=== PATIENT | female | born 1970 ===

== ENCOUNTER 2016-07-12 16:35 | Emergency (ER) | payer BC ==
--- NOTE | 2016-07-12 17:24 | UC ---
Abdominal Pain Female HPI - HPI Summary HPI Summary: ONSET OF UPPER ABDOMINAL PAIN LAST NIGHT. FEVER 102. NO N/V/D. HAD A BM THIS MORNING WITH NO IMPROVEMENT IN SX. KIDS AT HOME HAVE URI SX. DENIES ANY URINARY SX. 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 Negative: Diaphoresis, Chest Pain, Dizzy, Back Pain, Constipation, Blood in Stool, Urinary Symptoms, Nausea, Vomiting, Diarrhea Allergies/Adverse Reactions: Allergies Allergy/AdvReac Type Severity Reaction Status Date / Time No Known Allergies Allergy Verified 07/12/16 16:53 Home Medications: Home Medications NK [No Home Medications Reported] 07/12/16 [History Confirmed 07/12/16] PMH/Surg Hx/FS Hx/Imm Hx Previously Healthy: Yes - Surgical History Surgical History: None - Family History Known Family History: Negative: Hypertension - Social History Alcohol Use: Rare Substance Use Type: None Smoking Status (MU): Never Smoked Tobacco Review of Systems Constitutional: Fever Respiratory: Negative Cardiovascular: Negative Gastrointestinal: Abdominal Pain Genitourinary: Negative All Other Systems Reviewed And Are Negative: Yes Physical Exam Triage Information Reviewed: Yes Appearance: Well-Nourished, Pain Distress - MODERATE Vital Signs: Initial Vital Signs Temp 98.0 F 07/12/16 16:47 Pulse 99 07/12/16 16:47 Resp 18 07/12/16 16:47 BP 143/91 07/12/16 16:47 Pulse Ox 99 07/12/16 16:47 Vital Signs Reviewed: Yes Eyes: Positive: Conjunctiva Clear ENT: Positive: Hearing grossly normal Neck: Positive: Supple, Nontender, No Lymphadenopathy Respiratory Exam: Normal Cardiovascular: Positive: Tachycardia Abdomen Description: Positive: Soft, Other: - TTP RLQ. NO REBOUND OR RIGIDITY. POS OBTURATOR SIGN. NEG PSOAS.. Negative: Distended, Guarding Bowel Sounds: Positive: Present Musculoskeletal: Positive: No Edema Neurological: Positive: Alert Psychological: Positive: Normal Response To Family, Age Appropriate Behavior Skin: Negative: rashes Abd Pain Female Course/Dx - Course Course Of Treatment: ON EXAM PT FOUND TO BE EXQUISITELY TTP RLQ. TO [facility] [place] FURTHER EVAL. - Differential Dx/Diagnosis Differential Diagnosis: Appendicitis, Bowel Obstruction, Constipation, Ectopic , Urinary Tract Infection Provider Diagnoses: RLQ ABD PAIN - Physician Notification/Consults Discussed Patient Care With: PRECIOUS LIANG Time Discussed With Above Provider: 17:32 - TO [facility] BY PRIVATE CAR Discharge - Discharge Plan Condition: Stable Disposition: AGAINST MEDICAL ADVICE Referrals: Evette Singh MD [Primary Care Provider] -
[2016-07-12 17:55] VITALS: BP 117/72
== END 2016-07-12 17:34 | disposition left against medical advice (07) ==
LOC: UCEAST 16:35
DX: R10.31 Right lower quadrant pain (principal); R50.9 Fever, unspecified
CPT/HCPCS: 99202; G0463

== ENCOUNTER 2016-07-12 17:49 | Emergency (ER) | payer BC ==
[2016-07-12] MEDS ORDERED: Ondansetron INJ* 2 MG/ML VIAL IV ONE (18:15)
[2016-07-12] MEDS ORDERED: NS 0.9% 1000 ML* 1,000 ML IV ONE (18:15)
[2016-07-12 18:36] LABS: Urine Bilirubin Negative (Negative); Urine Glucose Negative (Negative); Urine Nitrite Negative (Negative)
[2016-07-12 18:38] LABS: ALT 6 U/L (7-52); AST 17 U/L (13-39); Albumin 4.4 g/dL (3.2-5.2); Alkaline Phosphatase 59 U/L (34-104); Amylase 37 U/L (29-103); Anion Gap 8 mmol/L (2-11); BUN/Creatinine Ratio 9.9 (8-20); Blood Urea Nitrogen 7 mg/dL (6-24); C Reactive Protein 10.95 mg/L (< 5.00); CO2 Carbon Dioxide 25 mmol/L (22-32); Calcium 9.2 mg/dL (8.6-10.3); Chloride 99 mmol/L (101-111); Creatine Kinase 39 U/L (10-223); EGFR African American 113.5 (>60); EGFR Non-African American 88.2 (>60); Globulin 3.5 g/dL (2-4); Glucose 114 mg/dL (70-100); Lipase 35 U/L (11.0-82.0); Potassium 3.4 mmol/L (3.5-5.0); Sodium 132 mmol/L (133-145); Total Protein 7.9 g/dL (6.4-8.9)
[2016-07-12 18:45] LABS: Hematocrit 44 % (35-47); Hemoglobin 14.6 g/dl (12.0-16.0); Mean Corpuscular HGB Conc 33 g/dl (31-36); Mean Corpuscular Hemoglobin 26 pg (27-31); Mean Corpuscular Volume 79 fL (80-97); Mean Platelet Volume 10 um3 (7.4-10.4); Red Blood Count 5.52 10^6/ul (4.0-5.4); Red Cell Distribution Width 14 % (10.5-15); White Blood Count 3.8 10^3/ul (3.5-10.8)
[2016-07-12] MEDS ORDERED: Iohexol 300* (CONTRAST) 10 ML SDV IV ONE (18:45)
--- NOTE | 2016-07-12 20:50 | RAD ---
INDICATION: Right lower quadrant abdominal pain. COMPARISON: There are no prior studies available for comparison. TECHNIQUE: A CT scan of the abdomen and pelvis was performed with intravenous and oral contrast following intravenous injection of 105 ml of Omnipaque 300 nonionic contrast. Contiguous axial sections were obtained from the lung bases through the symphysis pubis. Images were reconstructed in the coronal and sagittal planes. FINDINGS: There is mild dependent bilateral lower lobe subsegmental atelectasis. No pleural effusion is present. The liver and spleen are within normal limits in size without significant focal abnormality. No calcified gallstones are seen. The pancreas appears to be within normal limits in size. The kidneys and adrenal glands are normal in size. No hydronephrosis is seen. No significant focal renal abnormality is seen. The aorta is normal in caliber and demonstrates homogeneous contrast opacification. No significant enlarged retroperitoneal lymph nodes are seen. The stomach, small and large bowel appear nondistended. The appendix is within normal limits. There is no evidence for diverticulitis or colitis. There is a small periumbilical hernia containing fat. The uterus is retroverted and normal in size. There are bilateral involuting ovarian cysts measuring 2.1 x 1.2 cm on the right side and 1.6 x 1.4 cm on the left side. There is a small amount of free intraperitoneal fluid in the cul-de-sac. No free intraperitoneal air is seen. No significant focal osseous abnormality is seen. IMPRESSION: 1. NO EVIDENCE FOR APPENDICITIS. 2. SMALL BILATERAL INVOLUTING OVARIAN CYSTS.
[2016-07-12] MEDS ORDERED: Ketorolac INJ* 30 MG/ML 1 ML VIAL IV PUSH ONE (21:09)
[2016-07-12] MEDS ORDERED: oxyCODONE/Acetamin 5/325 MG* TAB PO ONE (21:29)
[2016-07-12] MEDS ORDERED: Ondansetron ODT TAB* 4 MG PO ONE (21:29)
--- NOTE | 2016-07-12 21:32 | ED ---
Dylon Mcwilliams Billy, scribed for Adam Wynn MD on 07/12/16 at 1814 . Abdominal Pain/Female - HPI Summary HPI Summary: Patient is a 46 year-old female coming to [facility] presenting with constant abdominal pain for the last 24 hours. Pain severity 8/10. She states that the pain, at rest, is primarily located in the umbilical region, although she states she had RLQ tenderness with palpation when she was seen at [facility] today. Denies any fevers, N/V/D. - History of Current Complaint Chief Complaint: EDAbdPain Stated Complaint: ABD PAIN COMMING FROM [facility] Time Seen by Provider: 07/12/16 18:10 Hx Obtained From: Patient Hx Last Menstrual Period: 3 wks ago Onset/Duration: Gradual Onset, Lasting Hours, Still Present Timing: Constant Severity Initially: Moderate Severity Currently: Moderate Pain Intensity: 8 Pain Scale Used: 0-10 Numeric Location: Discrete At: RLQ, Umbilical Aggravating Factor(s): Other: - palpation Alleviating Factor(s): Nothing Associated Signs and Symptoms: Negative: Fever, Nausea, Vomiting, Diarrhea Allergies/Adverse Reactions: Allergies Allergy/AdvReac Type Severity Reaction Status Date / Time No Known Allergies Allergy Verified 07/12/16 17:51 PMH/Surg Hx/FS Hx/Imm Hx Endocrine/Hematology History: Denies: Hx Diabetes Cardiovascular History: Denies: Hx Hypertension Infectious Disease History: No Infectious Disease History: Denies: Traveled Outside the [place] in Last 30 Days - Family History Known Family History: Negative: Cardiac Disease, Hypertension, Diabetes - Social History Alcohol Use: Rare Substance Use Type: Reports: None Smoking Status (MU): Never Smoked Tobacco Review of Systems Negative: Fever Positive: Abdominal Pain. Negative: Vomiting, Diarrhea, Nausea All Other Systems Reviewed And Are Negative: Yes Physical Exam - Summary Physical Exam Summary: VITAL SIGNS: Reviewed. GENERAL: Patient is a well developed and nourished female who is lying comfortable in the stretcher. Patient is not in any acute respiratory distress. HEAD AND FACE: Normocephalic and atraumatic. EYES: PERRLA, EOMI x 2, No injected conjunctiva. EARS: Hearing grossly intact. Ear canals and tympanic membranes are WNL. MOUTH: Oropharynx within normal limits. NECK: Supple, trachea is midline, no adenopathy, no JVD. CHEST: Symmetric, no tenderness at palpation LUNGS: Clear to auscultation bilaterally. No wheezing or crackles. CVS: RRR,, S1 and S2 present, no murmurs or gallops appreciated. ABDOMEN: Soft, positive RLQ tenderness. No signs of distention. Positive bowel sounds. No rebound no guarding, and no masses palpated. No abdominal bruit or pulsations. EXTREMITIES: FROM in all major joints, no edema, no cyanosis or clubbing. NEURO: Alert and oriented x 3. No acute neurological deficits. Speech is normal. SKIN: Dry and warm Triage Information Reviewed: Yes Vital Signs On Initial Exam: Initial Vitals Temp Pulse Resp BP Pulse Ox 97.1 F 93 18 129/97 100 07/12/16 17:51 07/12/16 17:51 07/12/16 17:51 07/12/16 17:51 07/12/16 17:51 Vital Signs Reviewed: Yes Diagnostics - Vital Signs Vital Signs Temp Pulse Resp BP Pulse Ox 07/12/16 17:51 97.1 F 93 18 129/97 100 - Laboratory Lab Results: Lab Results 07/12/16 07/12/16 07/12/16 Range/Units 18:00 18:10 18:10 WBC 3.8 (3.5-10.8) 10^3/ul RBC 5.52 H (4.0-5.4) 10^6/ul Hgb 14.6 (12.0-16.0) g/dl Hct 44 (35-47) % MCV 79 L (80-97) fL MCH 26 L (27-31) pg MCHC 33 (31-36) g/dl RDW 14 (10.5-15) % Plt Count 159 (150-450) 10^3/ul MPV 10 (7.4-10.4) um3 Neut % (Auto) 48.1 (38-83) % Lymph % (Auto) 38.1 (25-47) % Osborne % (Auto) 13.1 H (1-9) % Eos % (Auto) 0.1 (0-6) % Baso % (Auto) 0.6 (0-2) % Absolute Neuts (auto) 1.8 (1.5-7.7) 10^3/ul Absolute Lymphs (auto) 1.5 (1.0-4.8) 10^3/ul Absolute Monos (auto) 0.5 (0-0.8) 10^3/ul Absolute Eos (auto) 0 (0-0.6) 10^3/ul Absolute Basos (auto) 0 (0-0.2) 10^3/ul Absolute Nucleated RBC 0.01 10^3/ul Nucleated RBC % 0.2 Sodium 132 L (133-145) mmol/L Potassium 3.4 L (3.5-5.0) mmol/L Chloride 99 L (101-111) mmol/L Carbon Dioxide 25 (22-32) mmol/L Anion Gap 8 (2-11) mmol/L BUN 7 (6-24) mg/dL Creatinine 0.71 (0.51-0.95) mg/dL Est GFR ( Amer) 113.5 (>60) Est GFR (Non-Af Amer) 88.2 (>60) BUN/Creatinine Ratio 9.9 (8-20) Glucose 114 H (70-100) mg/dL Calcium 9.2 (8.6-10.3) mg/dL Total Bilirubin 0.30 (0.2-1.0) mg/dL AST 17 (13-39) U/L ALT 6 L (7-52) U/L Alkaline Phosphatase 59 (34-104) U/L Total Creatine Kinase 39 (10-223) U/L C-Reactive Protein 10.95 H (< 5.00) mg/L B-Natriuretic Peptide ( - 100) pg/mL Total Protein 7.9 (6.4-8.9) g/dL Albumin 4.4 (3.2-5.2) g/dL Globulin 3.5 (2-4) g/dL Albumin/Globulin Ratio 1.3 (1-3) Amylase 37 (29-103) U/L Lipase 35 (11.0-82.0) U/L Beta HCG, Quant < 0.60 mIU/mL Urine Color Yellow Urine Appearance Clear Urine pH 5.0 (5-9) Ur Specific [place] 1.015 (1.010-1.030) Urine Protein Negative (Negative) Urine Ketones Negative (Negative) Urine Blood Negative (Negative) Urine Nitrate Negative (Negative) Urine Bilirubin Negative (Negative) Urine Urobilinogen Negative (Negative) Ur Leukocyte Esterase Negative (Negative) Urine Glucose Negative (Negative) Urine Ascorbic Acid * H (Negative) 07/12/16 Range/Units 18:10 WBC (3.5-10.8) 10^3/ul RBC (4.0-5.4) 10^6/ul Hgb (12.0-16.0) g/dl Hct (35-47) % MCV (80-97) fL MCH (27-31) pg MCHC (31-36) g/dl RDW (10.5-15) % Plt Count (150-450) 10^3/ul MPV (7.4-10.4) um3 Neut % (Auto) (38-83) % Lymph % (Auto) (25-47) % Osborne % (Auto) (1-9) % Eos % (Auto) (0-6) % Baso % (Auto) (0-2) % Absolute Neuts (auto) (1.5-7.7) 10^3/ul Absolute Lymphs (auto) (1.0-4.8) 10^3/ul Absolute Monos (auto) (0-0.8) 10^3/ul Absolute Eos (auto) (0-0.6) 10^3/ul Absolute Basos (auto) (0-0.2) 10^3/ul Absolute Nucleated RBC 10^3/ul Nucleated RBC % Sodium (133-145) mmol/L Potassium (3.5-5.0) mmol/L Chloride (101-111) mmol/L Carbon Dioxide (22-32) mmol/L Anion Gap (2-11) mmol/L BUN (6-24) mg/dL Creatinine (0.51-0.95) mg/dL Est GFR ( Amer) (>60) Est GFR (Non-Af Amer) (>60) BUN/Creatinine Ratio (8-20) Glucose (70-100) mg/dL Calcium (8.6-10.3) mg/dL Total Bilirubin (0.2-1.0) mg/dL AST (13-39) U/L ALT (7-52) U/L Alkaline Phosphatase (34-104) U/L Total Creatine Kinase (10-223) U/L C-Reactive Protein (< 5.00) mg/L B-Natriuretic Peptide 4 ( - 100) pg/mL Total Protein (6.4-8.9) g/dL Albumin (3.2-5.2) g/dL Globulin (2-4) g/dL Albumin/Globulin Ratio (1-3) Amylase (29-103) U/L Lipase (11.0-82.0) U/L Beta HCG, Quant mIU/mL Urine Color Urine Appearance Urine pH (5-9) Ur Specific [place] (1.010-1.030) Urine Protein (Negative) Urine Ketones (Negative) Urine Blood (Negative) Urine Nitrate (Negative) Urine Bilirubin (Negative) Urine Urobilinogen (Negative) Ur Leukocyte Esterase (Negative) Urine Glucose (Negative) Urine Ascorbic Acid (Negative) Result Diagrams: 07/12/16 18:10 07/12/16 18:10 Lab Statement: Any lab studies that have been ordered have been reviewed, and results considered in the medical decision making process. - CT abd/pel w CT Interpretation Completed By: Radiologist - 1. NO EVIDENCE FOR APPENDICITIS. 2. SMALL BILATERAL INVOLUTING OVARIAN CYSTS. Abdominal Pain Fem Course/Dx - Course Course Of Treatment: Patient is a 46 year-old female coming to [facility] presenting with constant abdominal pain for the last 24 hours. Pain severity 8/10. She states that the pain, at rest, is primarily located in the umbilical region, although she states she had RLQ tenderness with palpation when she was [facility] [place] [facility] [place]. Denies any fevers, N/V/D. Bloodwork is found to be WNL except for sodium of 132 and potassium 3.4. Glucose is 114 and CRP is 10.9. UA is negative. CT abd/pel shows no evidence for appendicitis and small bilateral ovarian cysts. In the ED course, pt was given IV fluids and Toradol for pain with improvement. Patient declined pelvic exam and pelvic ultrasounds. Therefore pt will be discharged to follow up with PCP. A&Ox3, hemodynamically stable. I discussed all the findings and test results with the patient. Patient was instructed to return to the emergency room immediately if any of the symptoms return or worsens. They were explained the possibility of an early abdominal pathology which was not detected at this time despite the physical exam and testing. They understand and agree. Abdominal exam before discharge: Soft, NT. No signs of distention. BS present. No rebound no guarding , and no masses palpated. Patient is alert and oriented and hemodynamically stable. Patient is to follow up with primary care physician in the next 2 to 3 days. Patient agree and understands. - Diagnoses Differential Diagnosis: Positive: Appendicitis, Bowel Obstruction, Constipation , Renal Colic Provider Diagnoses: Abdominal pain Discharge - Discharge Plan Condition: Stable Disposition: HOME Patient Education Materials: Abdominal Pain (ED) Referrals: Evette Singh MD [Primary Care Provider] - The documentation as recorded by the Dylon cordova Billy accurately reflects the service I personally performed and the decisions made by Kingsley issa Walter, MD.
[2016-07-12 22:05] VITALS: BP 97/66
== END 2016-07-12 22:03 | disposition home or self-care (01) ==
LOC: ED 17:49
DX: R10.31 Right lower quadrant pain (principal)
CPT/HCPCS: 36415; 74177; 80053; 81003; 82150; 82550; 83690; 83880; 84702; 85025; 86140; 96374; 96375; 99283; A9270-GY; J1885; J2405; Q9967